=== PATIENT | female | born 1960 ===

== ENCOUNTER 2016-08-28 11:05 | Emergency (ER) | payer OTHER ==
[2016-08-28 12:40] VITALS: BP 156/96
--- NOTE | 2016-08-28 14:25 | UC ---
Back Pain HPI - HPI Summary HPI Summary: patient bent over to take something out of fridge, got a sharp pain in the middle of her back, radiated to the left leg. happened one day ago. - History of Current Complaint Chief Complaint: UCBackPain Stated Complaint: BACK INJURY (WC) Time Seen by Provider: 08/28/16 14:11 Hx Obtained From: Patient Hx Last Menstrual Period: years ?: No Onset/Duration: Sudden Onset, Lasting Hours Timing: Constant Severity Initially: Moderate Severity Currently: Moderate Pain Intensity: 6 Pain Scale Used: 0-10 Numeric Back Pain: Is Discrete @ - low back Character: Throbbing, Spasmodic Alleviating: Nothing Associated Signs And Symptoms: Positive: Weakness - left leg - Allergies/Home Medications Allergies/Adverse Reactions: Allergies Allergy/AdvReac Type Severity Reaction Status Date / Time No Known Allergies Allergy Verified 08/28/16 12:40 Home Medications: Home Medications Ginseng [Multi Ginseng] 1 cap PO DAILY 08/28/16 [History Confirmed 08/28/16] Multiple Vitamins W/ Minerals [Multivitamin Women 50+] 1 tab PO DAILY 08/28/16 [ History Confirmed 08/28/16] Naproxen Sodium 220 mg PO Q24HR PRN 08/28/16 [History Confirmed 08/28/16] Polyethylene Glycol 3350 BTL* [Miralax] 1 pow PO DAILY 08/28/16 [History Confirmed 08/28/16] PMH/Surg Hx/FS Hx/Imm Hx Previously Healthy: Yes - Surgical History Surgical History: None Surgery Procedure, Year, and Place: bi-lateral carpel tunnel 2011; x 3 ; parathyroid 2013; hemorrhoid - Social History Alcohol Use: Occasionally Substance Use Type: None Smoking Status (MU): Former Smoker Review of Systems Constitutional: Negative Skin: Negative Eyes: Negative ENT: Negative Respiratory: Negative Cardiovascular: Negative Gastrointestinal: Negative Genitourinary: Negative Motor: Negative Neurovascular: Negative Musculoskeletal: Arthralgia, Decreased ROM, Myalgia Neurological: Negative, Headache All Other Systems Reviewed And Are Negative: Yes Physical Exam Triage Information Reviewed: Yes Appearance: Well-Appearing, Well-Nourished, Pain Distress Vital Signs: Initial Vital Signs Temp 99.1 F 08/28/16 12:32 Pulse 75 08/28/16 12:32 Resp 28 08/28/16 12:32 BP 156/96 08/28/16 12:32 Pulse Ox 97 08/28/16 12:32 Vital Signs Reviewed: Yes Eye Exam: Normal Eyes: Positive: Conjunctiva Clear ENT Exam: Normal ENT: Positive: Normal ENT inspection, Pharynx normal, TMs normal Dental Exam: Normal Neck exam: Normal Neck: Positive: Supple, Nontender, No Lymphadenopathy Respiratory Exam: Normal Respiratory: Positive: Chest non-tender, Lungs clear, Normal breath sounds Cardiovascular Exam: Normal Cardiovascular: Positive: RRR, No Murmur, Pulses Normal Abdominal Exam: Normal Abdomen Description: Positive: Nontender, No Organomegaly, Soft Bowel Sounds: Positive: Present Musculoskeletal Exam: Other Musculoskeletal: Positive: No Edema, Strength Limited @ - left legs, ROM Limited @ - back flx and ext Neurological Exam: Normal Neurological: Positive: Alert, Muscle Tone Normal Psychological Exam: Normal Skin Exam: Normal Back Pain Course/Dx - Course Course Of Treatment: hisotry obtained, exam performed, med given, xray of low back no acute pathology noted. meds prescribed and PT referral given and and recommended follow up. - Differential Dx/Diagnosis Differential Diagnosis/HQI/PQRI: Herniated Disc, Strain, Sprain Provider Diagnoses: low back pain. DJD lumbar spine Discharge - Discharge Plan Condition: Stable Disposition: HOME Patient Education Materials: Acute Low Back Pain (ED), Lower Back Exercises (ED ) Additional Instructions: Continue with the aleve twice a day. I have given you a PT referral for stretching and strengthening of low back. Heat the low back and hips and porceed with gentle stretching. Follow up with nay acute pain.
[2016-08-28] MEDS ORDERED: Ketorolac INJ* 60 MG/2 ML VIAL IM ONE (14:31)
--- NOTE | 2016-08-28 14:51 | RAD ---
HISTORY: Pain with left-sided weakness COMPARISONS: CT dated May 30, 2010 VIEWS: 3 , Frontal, lateral, and coned-down lateral sacral views of the lumbar spine FINDINGS: ALIGNMENT: There is grade 1 anterolisthesis of L5 on S1. VERTEBRAL BODIES: There are bilateral pars defects at L5. There is mild anterolateral marginal osteophyte formation. JOINTS: There is facet hypertrophy change at L4-L5 and L5-S1. INTERVERTEBRAL DISCS: There is diffuse loss of intervertebral disc height. SOFT TISSUE: Unremarkable. OTHER: The pelvis is unremarkable. The lung bases are clear. IMPRESSION: 1. SPONDYLOLYSIS WITH SPONDYLOLISTHESIS AT L5-S1. 2. MILD DEGENERATIVE DISC DISEASE AND OSTEOARTHRITIS.
== END 2016-08-28 15:10 | disposition home or self-care (01) ==
LOC: UCCORT 11:05
DX: M43.06 Spondylolysis, lumbar region (principal); M43.16 Spondylolisthesis, lumbar region; M51.36 Other intervertebral disc degeneration, lumbar region; Z87.891 Personal history of nicotine dependence
CPT/HCPCS: 72100; 96372; 99201; G0463; J1885